=== PATIENT | female | born 1995 | race Caucasian/White ===

== ENCOUNTER → 2022-03-28 | Day surgery (SDC) | payer OTHER ==
[~2022-03-28] VITALS: Ht 167.6 cm; Wt 99.8 kg
[~2022-03-28] MED LIST: NORTREL PO; PEPCID AC20 MG PO; SINGULAIR10 MG PO; ZYRTEC10 M3 PO
[2022-03-28 09:47] LABS: HCG (URINE) SCREEN NEGATIVE (NEGATIVE)
== END | disposition home or self-care (01) ==
LOC: FAS 09:31
PROVIDERS: Anesthesiology
DX: R07.89 Other chest pain (principal); K29.50 Unspecified chronic gastritis without bleeding; K76.0 Fatty (change of) liver, not elsewhere classified; E78.00 Pure hypercholesterolemia, unspecified; K21.9 Gastro-esophageal reflux disease without esophagitis; F41.9 Anxiety disorder, unspecified; F32.A Depression, unspecified; Z87.891 Personal history of nicotine dependence; Z88.1 Allergy status to other antibiotic agents; Z88.8 Allergy status to other drugs, medicaments and biological substances; Z79.899 Other long term (current) drug therapy
CPT/HCPCS: 84703; J2250; J2704; J7120

== ENCOUNTER 2022-05-16 13:33 | Emergency (ER) | payer OTHER ==
[2022-05-17] MEDS ORDERED: PERCOCET 5-3251 EACH PO (12:08)
[2022-05-17] MEDS ORDERED: ONDANSETRON ODT4 MG PO (12:08)
== END 2022-05-16 17:17 | disposition home or self-care (01) ==
LOC: FER 13:33
DX: R20.2 Paresthesia of skin (principal); J45.909 Unspecified asthma, uncomplicated; Z88.0 Allergy status to penicillin; Z88.1 Allergy status to other antibiotic agents; Z88.8 Allergy status to other drugs, medicaments and biological substances; Z28.310 Unvaccinated for COVID-19
CPT/HCPCS: 93971

== ENCOUNTER → 2022-05-17 | Day surgery (SDC) | payer OTHER ==
[~2022-05-17] VITALS: Ht 167.6 cm; Wt 95.4 kg
[~2022-05-17] MED LIST changes: +ONDANSETRON ODT4 MG PO; +PERCOCET 5-3251 EACH PO
[2022-05-17 09:12] LABS: HCG (URINE) SCREEN NEGATIVE (NEGATIVE)
== END | disposition home or self-care (01) ==
LOC: FAS 08:54
PROVIDERS: Anesthesiology
DX: K81.1 Chronic cholecystitis (principal); R59.0 Localized enlarged lymph nodes
CPT/HCPCS: 84703; J1100; J1170; J1885; J1956; J2250; J2405; J2550; J2704; J3010; J7120